=== PATIENT | male | born 1980 | race Caucasian/White ===

== ENCOUNTER 2022-09-08 17:05 | Emergency (ER) | payer OTHER, SELFPAY ==
[2022-09-08 17:16] VITALS: BP 128/89; PULSE 108; RESP 14; TEMP 36.7; O2SAT 96
--- NOTE | 2022-09-08 18:48 | ED.ANXIETY ---
HPI - Anxiety General Chief Complaint: Anxiety Stated Complaint: PANIC ATTACK AT WORK Time Seen by Provider: 09/08/22 17:39 History of Present Illness HPI narrative: 42-year-old male with no medical problems presents to the emergency room for evaluation of difficulty sleeping, decreased appetite for several days. Patient states that he has been experiencing great amount of stress at work. States recently he has not been eating or drinking like normal, is having difficulty falling asleep, and reports feeling increased anxiety while at work. Patient denies any other known life stressors. Patient presents the emergency room requesting advice for how to manage his increasing anxiety. Denies chest pain, shortness of breath, syncopal episodes. Patient also states that he is recovering from influenza, and has been taking Mucinex DM for his cough. Related Data Allergies Allergy/AdvReac Type Severity Reaction Status Date / Time No Known Allergies Allergy Verified 09/08/22 17:38 Review of Systems Review of Systems: CONSTITUTIONAL: Denies fever, chills, or sweats. EYES: Denies visual changes, redness, or discharge. ENT: Denies rhinorrhea, congestion, sore throat, or otalgia. CARDIOVASCULAR: Denies chest pain, palpitations, or edema. RESPIRATORY: Denies cough or dyspnea. GASTROINTESTINAL: Denies abdominal pain, nausea, vomiting, or diarrhea. GENITOURINARY: Denies dysuria or hematuria. SKIN: Denies rash or itching. MUSCULOSKELETAL: Denies back pain, joint pain, or myalgia. NEUROLOGIC: Denies headache, numbness, dizziness, or weakness. PSYCHIATRIC: Reports anxiety PMFSH Family History Family History Grandparent Family history of cardiovascular disease Social History Social History Smoking status: Never smoker Alcohol intake: never Exam Narrative: GENERAL: Well-appearing, well-nourished, no physical limitations, and in no acute distress. HEAD: Normocephalic, atraumatic. EYES: Conjunctivae normal, PERRLA and EOMI. CHEST: Clear to auscultation. No respiratory distress. No wheezes rales or rhonchi. HEART: Regular rate and rhythm. No murmur heard. Normal peripheral pulses. ABDOMEN: Soft, nontender, nondistended, normal active bowel sounds. : Normal external male/female exam. BACK: No CVA tenderness; No cervical/thoracic/lumbar tenderness, step-offs, bony abnormality; FROM EXTREMITIES: Normal range of motion. No edema. No clubbing or cyanosis SKIN: Warm, dry, no rash. No noted wounds NEURO: No focal deficits. Alert and oriented x3. MAEW. CN's II-XI intact bilaterally, normal gait PSYCH: Cooperative. Anxiety. Course Vital Signs Vital signs: Vital Signs Temperature 36.7 C 09/08/22 17:16 Pulse Rate 108 H 09/08/22 17:16 Respiratory Rate 14 09/08/22 17:16 Blood Pressure 128/89 09/08/22 17:16 Pulse Oximetry 96 09/08/22 17:16 Oxygen Delivery Room Air 09/08/22 17:16 Temperature 36.7 C 09/08/22 17:16 Pulse Rate 108 H 09/08/22 17:16 Respiratory Rate 14 09/08/22 17:16 Blood Pressure 128/89 09/08/22 17:16 Pulse Oximetry 96 09/08/22 17:16 Oxygen Delivery Room Air 09/08/22 17:16 Discharge Plan Discharge Clinical Impression: Acute anxiety Patient Disposition: Home, Self-Care Condition: Stable Instructions: Antibiotic Form, Anxiety (ED) Prescriptions: New hydroxyzine pamoate [Vistaril] 50 mg capsule 50 mg PO HS Qty: 30 0RF Follow-up/Referrals: Spenser Olvera MD [Primary Care Provider] - Time of Disposition: 18:42
[2022-09-08 19:20] VITALS: BP 117/88; PULSE 81; RESP 16; O2SAT 100
== END 2022-09-08 19:25 | disposition home or self-care (01) ==
LOC: ANHED 19:06
PROVIDERS: Emergency Provider Nurse Practitioner Family
DX: F41.9 Anxiety disorder, unspecified (principal)
CPT/HCPCS: 99283